=== PATIENT | male | born 1990 | race Hispanic/Latino ===

== ENCOUNTER 2016-10-31 19:34 | Emergency (ER) | payer OTHER ==
--- NOTE | 2016-10-31 19:47 | EDM.PDOC ---
ED HPI Trauma - General Chief Complaint: Lower Extremity Injury/Pain Stated Complaint: BIKE SKID FELL ON FOOT Time Seen by Provider: 10/31/16 19:45 Source: Reports: Patient History Limitations: Reports: No limitations - History of Present Illness INITIAL COMMENTS - FREE TEXT/NARRATIVE: HISTORY AND PHYSICAL: History of present illness: [Patient comes to the emergency room complaining of left foot pain. He was helping unload skids from a truck when one was accidentally thrown onto the top of his foot. He complains of pain with flexion and extension of his left foot. Occurred several hours prior to arrival in the ER. No other complaints or concerns. Denies previous injury or surgery to his foot. If not taken any medication for his symptoms.] Review of systems: As per history of present illness and below otherwise all systems reviewed and negative. Past medical history: As per history of present illness and as reviewed below otherwise noncontributory. Surgical history: As per history of present illness and as reviewed below otherwise noncontributory. Social history: No reported history of drug or alcohol abuse. Family history: As per history of present illness and as reviewed below otherwise noncontributory. Physical exam: HEENT: Atraumatic, normocephalic, mucous membranes moist, throat clear. Pelvis: Stable nontender. Genitourinary: Deferred. Rectal: Deferred. Extremities: Mild swelling to the top of his left foot. Is tender with palpation. Capillary refill less than 2 seconds. Negative for cords or calf pain. Neurovascular unremarkable. Neuro: Awake, alert, oriented. Motor and sensory unremarkable throughout. Exam nonfocal. Diagnostics: [L foot x-ray] Impression: [Left foot contusion] Plan: [Discussed with patient that his foot x-ray is completely normal and without fracture. Recommend treating as a contusion with conservative measures. All of his questions are answered and concerns are addressed he verbalized understanding of today's plan] Definitive disposition and diagnosis as appropriate pending reevaluation and review of above. Allergies/ADRs: Allergies No Known Allergies Allergy (Verified 10/31/16 19:39) Home Medications: Ambulatory Orders . [No Known Home Meds] 10/31/16 [Confirmed 10/31/16] Review of Systems - Review of Systems Review Of Systems: ROS reveals no pertinent complaints other than HPI. Trauma Exam - Physical Exam Exam: See Below Course - Vital Signs Last Recorded V/S: Last Vital Signs Temp 101.0 F H 10/31/16 19:39 Pulse 121 H 10/31/16 19:39 Resp 18 10/31/16 19:39 BP 136/83 10/31/16 19:39 Pulse Ox 97 10/31/16 19:39 - Orders/Labs/Meds Orders: Active Orders 24 hr Category Date Time Status Foot Comp Min 3V Lt [CR] Stat Exams 10/31/16 19:36 Taken Departure - Departure Time of Disposition: 20:15 Disposition: Home, Self-Care 01 Condition: good Clinical Impression: Foot pain, left Instructions: Foot Contusion, [id number] Referrals: PCP,None [Primary Care Provider] - Forms: ED Department Discharge Additional Instructions: The following information is given to patients seen in the emergency department who are being discharged to home. This information is to outline your options for follow-up care. We provide all patients seen in our emergency department with a follow-up referral. The need for follow-up, as well as the timing and circumstances, are variable depending upon the specifics of your emergency department visit. If you don't have a primary care physician on staff, we will provide you with a referral. We always advise you to contact your personal physician following an emergency department visit to inform them of the circumstance of the visit and for follow-up with them and/or the need for any referrals to a consulting specialist. The emergency department will also refer you to a specialist when appropriate. This referral assures that you have the opportunity for follow-up care with a specialist. All of these measure are taken in an effort to provide you with optimal care, which includes your follow-up. Under all circumstances we always encourage you to contact your private physician who remains a resource for coordinating your care. When calling for follow-up care, please make the office aware that this follow-up is from your recent emergency room visit. If for any reason you are refused follow-up, please contact the [facility] emergency department at and asked to speak to the emergency department charge nurse. [facility] [address] [place] [phone] Recommend Tylenol alternating with ibuprofen and as needed for discomfort. Your x-ray shows no fractures. Rest your foot, ice it, and elevate it as much possible. Followup with primary care provider if you or worsening in improving. Return to ER as needed as discussed - My Orders Last 24 Hours: My Active Orders 10/31/16 19:36 Foot Comp Min 3V Lt [CR] Stat - Assessment/Plan Last 24 Hours: My Active Orders 10/31/16 19:36 Foot Comp Min 3V Lt [CR] Stat
[2016-10-31 19:48] VITALS: BP 136/83
--- NOTE | 2016-11-03 16:14 | CR ---
EXAM DATE: 10/31/16 PATIENT'S AGE: 26 Patient: JOSE FRANCISCO ALBARRAN Facility: [place], [place] Site . Site : 1990 Study: XRay Extremity foot [id number]/3/[id number] 7:53:26 PM Ordering Physician: Doctor Cox Final Report: Indication: Injury Technique: Three views of the left foot Comparison: None available Findings: Bones: No acute fracture or dislocation. Apparent elongation of the anterior process of the calcaneus with narrowing of the calcaneonavicular joint space. Joint spaces: The posterior aspect of the subtalar joint is not well seen. Soft tissues: Unremarkable. Impression: No evidence of an acute fracture or dislocation. 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 Consider followup evaluation. Dictated by Raman Sheffield MD @ 10/31/2016 8:03:44 PM Dictated by: Raman Sheffield MD @ 10/31/2016 20:03:52 (Electronic Signature) Report Signed by Proxy and Original Signed Document filed in the Medical Record. [email or web address]
== END 2016-10-31 20:21 | disposition home or self-care (01) ==
LOC: MW.ED 19:34
DX: S90.32XA Contusion of left foot, initial encounter (principal); V99.XXXA Unspecified transport accident, initial encounter; Y93.23 Activity, snow (alpine) (downhill) skiing, snowboarding, sledding, tobogganing and snow tubing
CPT/HCPCS: 73630-26-LT; 73630-LT; 99282; 99283